=== PATIENT | male | born 1955 | race African-American/Black ===

== ENCOUNTER 2017-01-26 08:49 | Day surgery (SDC) | payer OTHER ==
[2017-01-20 11:10] VITALS: BMI 35.0
[2017-01-26 09:20] VITALS: TEMP 97.7
[2017-01-26] MEDS ORDERED: METOPROLOL TARTRATE 5 MG/5 ML VIAL ONE (09:31)
[2017-01-26 10:52] VITALS: BP 111/66; PULSE 53
== END 2017-01-26 11:00 | disposition home or self-care (01) ==
LOC: FASU-ENDO 08:49
PROVIDERS: ATTEND Internal Medicine Gastroenterology
PROC: 0DJD8ZZ Inspection of Lower Intestinal Tract, Via Natural or Artificial Opening Endoscopic (ICD-10-PCS; principal; 2017-01-26 09:38)
DX: Z86.010 Personal history of colon polyps (principal)